=== PATIENT | male | born 1945 | race Caucasian/White ===

== ENCOUNTER 2018-06-30 06:25 | Day surgery (SDC) | payer MEDICARE, BC ==
[2018-06-30] MEDS ORDERED: MEPERIDINE 25 MG INJ IV (07:00)
[2018-06-30] MEDS ORDERED: OXYCODONE/ACETAMINOPHEN (5/325) TAB PO ×2 (07:00)
[2018-06-30] MEDS ORDERED: DIPHENHYDRAMINE 50 MG INJ IV (07:00)
[2018-06-30] MEDS ORDERED: FENTAnyl 50 MCG/ML VIAL IV ×2 (07:00)
[2018-06-30] MEDS ORDERED: ALBUTEROL 0.083% (NEB) 2.5 MG/3 ML AMP HHN (07:00)
[2018-06-30] MEDS ORDERED: LABETALOL HCL 20MG INJ IV (07:00)
[2018-06-30] MEDS ORDERED: ONDANSETRON 4 MG INJ IV (07:00)
[2018-06-30] MEDS ORDERED: HYDROmorphONE 1 MG/5 ML IV SYRINGE IV ×3 (07:00)
[2018-06-30] MEDS ORDERED: morphine (1 MG/ML) 10ML SYRINGE IV ×2 (07:00)
[2018-06-30] MEDS ORDERED: MIDAZOLAM 1 MG/ML 2 ML INJ (07:31)
[2018-06-30] MEDS ORDERED: CEFAZOLIN 1 GM INJ (07:31)
[2018-06-30] MEDS ORDERED: PROPOFOL 40 ML (07:31)
[2018-06-30] MEDS ORDERED: LIDOCAINE 2% (SDV) 5 ML INJ (07:31)
[2018-06-30] MEDS ORDERED: FENTAnyl 50 MCG/ML VIAL (07:31)
[2018-06-30] MEDS: LIDOCAINE 1% (MDV) 20 ML INJ INJ (07:40)
[2018-06-30] MEDS: BUPIVACAINE 0.5% 30 ML VIAL INJ (07:40)
[2018-06-30] MEDS ORDERED: BUPIVACAINE 0.5% (SDV) 30 ML INJ (07:54)
[2018-06-30] MEDS ORDERED: LIDOCAINE 1% (MDV) 20 ML INJ (07:54)
== END 2018-06-30 10:35 | disposition home or self-care (01) ==
LOC: SDS 06:25
DX: M77.52 Other enthesopathy of left foot and ankle (principal); E11.42 Type 2 diabetes mellitus with diabetic polyneuropathy; M21.962 Unspecified acquired deformity of left lower leg; I10 Essential (primary) hypertension; E78.5 Hyperlipidemia, unspecified
CPT/HCPCS: 28039; 82962; 88307

== ENCOUNTER 2018-07-08 12:38 | Emergency (ER) | payer SELFPAY, BC, MEDICARE | END 2018-07-08 19:06 | disposition left against medical advice (07) | LOC: E/R 12:38 | DX: Z53.21 Procedure and treatment not carried out due to patient leaving prior to being seen by health care provider (principal) ==

== ENCOUNTER 2018-07-09 06:09 | Emergency (ER) | payer MEDICARE, BC ==
[2018-07-09 07:41] LABS: ADD MAN DIFF? NO
[2018-07-09 07:44] LABS: BASOPHIL # 0.1 10^3/ul (0.0-0.1); BASOPHILS % 0.7 % (0.0-2.0); EOSINOPHILS # 0.1 10^3/ul (0.0-0.5); EOSINOPHILS % 1.2 % (0.0-7.0); HEMATOCRIT 40.2 % (42.0-52.0); HEMOGLOBIN 13.2 g/dl (14.0-18.0); MEAN CORPUSCULAR HEMOGLOBIN 29.6 pg (29.0-33.0); MEAN CORPUSCULAR HGB CONC 32.8 g/dl (32.0-37.0); MEAN CORPUSCULAR VOLUME 90.1 fl (82.0-101.0); MEAN PLATELET VOLUME 9.6 fl (7.4-10.4); MONOCYTE # 0.7 10^3/ul (0.3-0.9); MONOCYTES % 8.2 % (0.0-11.0); NEUTROPHIL # 6.5 10^3/ul (1.6-7.5); NEUTROPHILS % 77.7 % (39.0-77.0); PLATELET COUNT 186 10^3/UL (140-415); RED BLOOD COUNT 4.46 10^6/ul (4.70-6.10); RED CELL DISTRIBUTION WIDTH 13.2 % (11.5-14.5)
[2018-07-09 07:44] LABS: WHITE BLOOD COUNT 8.3 10^3/ul (4.8-10.8)
[2018-07-09 08:00] LABS: ALANINE AMINOTRANSFERASE 45 IU/L (13-69); ALBUMIN 4.2 g/dl (3.3-4.9); ALKALINE PHOSPHATASE 76 IU/L (42-121); ANION GAP 12 (5-13); ASPARTATE AMINO TRANSFERASE 36 IU/L (15-46); BILIRUBIN,INDIRECT 0.4 mg/dl (0-1.1); BILIRUBIN,TOTAL 0.4 mg/dl (0.2-1.3); BLOOD UREA NITROGEN 15 mg/dl (7-20); CALCIUM 9.7 mg/dl (8.4-10.2); CARBON DIOXIDE 26 mmol/L (21-31); CHLORIDE 105 mmol/L (97-110); CREATININE 0.63 mg/dl (0.61-1.24); GLUCOSE 171 mg/dl (70-220); LIPASE 30 U/L (23-300); POTASSIUM 4.1 mmol/L (3.5-5.1); SODIUM 143 mmol/L (135-144); TOTAL PROTEIN 7.2 g/dl (6.1-8.1)
[2018-07-09] MEDS ORDERED: ONDANSETRON 4 MG INJ IV (08:00)
[2018-07-09] MEDS ORDERED: ACETAMINOPHEN 325 MG TAB PO (08:00)
[2018-07-09 08:10] LABS: INR 1.02; PROTIME 13.5 Sec (11.9-14.9); PT RATIO 1.1
[2018-07-09 08:11] LABS: PARTIAL THROMBOPLASTIN TIME 30.2 Sec (23.0-35.0)
[2018-07-09 08:13] LABS: TROPONIN-I < 0.012 ng/ml (0.000-0.120)
[2018-07-09 08:25] LABS: ADD UMIC YES; UR ASCORBIC ACID NEGATIVE (NEGATIVE); UR BILIRUBIN (Dip) NEGATIVE (NEGATIVE); UR BLOOD (Dip) 1+ mg/dL (NEGATIVE); UR CLARITY CLEAR (CLEAR); UR COLOR YELLOW (YELLOW); UR GLUCOSE (Dip) NEGATIVE (NEGATIVE); UR KETONES (Dip) NEGATIVE (NEGATIVE); UR LEUKOCYTE ESTERASE (Dip) NEGATIVE Leu/ul (NEGATIVE); UR NITRITE (Dip) NEGATIVE (NEGATIVE); UR RBC 1 /HPF (0-5); UR SPECIFIC GRAVITY (Dip) 1.012 (1.003-1.030); UR TOTAL PROTEIN (Dip) NEGATIVE (NEGATIVE); UR UROBILINOGEN (Dip) 1+ mg/dL (NEGATIVE); UR WBC 1 /HPF (0-5)
[2018-07-09] MEDS: VANCOMYCIN 1 GM (PMX) 250 ML IVPB (11:38)
[2018-07-09] MEDS: PIPER-TAZO 3.375 GM IV (PMX) 100 ML IVPB (14:02)
== END 2018-07-09 14:49 | disposition home or self-care (01) ==
LOC: E/R 06:09
DX: L76.32 Postprocedural hematoma of skin and subcutaneous tissue following other procedure (principal); I10 Essential (primary) hypertension; E11.9 Type 2 diabetes mellitus without complications
CPT/HCPCS: 36415; 71045; 73630-LT; 80053; 81001; 83690; 84484; 85025; 85610; 85730; 93005; 96365; 96366; 96367; 96375; 99285-25

== ENCOUNTER 2018-07-10 07:27 | Observation (INO) | payer MEDICARE, BC ==
[2018-07-10] MEDS ORDERED: FENTAnyl 50 MCG/ML VIAL (08:24)
[2018-07-10] MEDS ORDERED: CEFAZOLIN 1 GM INJ (08:24)
[2018-07-10] MEDS ORDERED: PROPOFOL 20 ML (08:24)
[2018-07-10] MEDS ORDERED: MIDAZOLAM 1 MG/ML 2 ML INJ (08:24)
[2018-07-10] MEDS ORDERED: ROPIVACAINE 0.2% 20 ML VIAL (08:25)
[2018-07-10] MEDS ORDERED: ROPIVACAINE 0.5 % 30 ML VIAL (08:25)
[2018-07-10] MEDS ORDERED: METOCLOPRAMIDE 10 MG INJ IV (08:30)
[2018-07-10] MEDS ORDERED: EPHEDrine SULFATE 50 MG/5 ML SYG IV (08:30)
[2018-07-10] MEDS ORDERED: FENTAnyl 50 MCG/ML VIAL IV ×2 (08:30)
[2018-07-10] MEDS ORDERED: ONDANSETRON 4 MG INJ IV ×2 (08:30→09:30)
[2018-07-10] MEDS ORDERED: MEPERIDINE 25 MG INJ IV (08:30)
[2018-07-10] MEDS ORDERED: OXYCODONE/ACETAMINOPHEN (5/325) TAB PO (08:30)
[2018-07-10] MEDS ORDERED: LABETALOL HCL 20MG INJ IV (08:30)
[2018-07-10] MEDS ORDERED: DIPHENHYDRAMINE 50 MG INJ IV ×2 (08:30→09:30)
[2018-07-10] MEDS ORDERED: HYDROmorphONE 1 MG/5 ML IV SYRINGE IV ×2 (08:30)
[2018-07-10] MEDS ORDERED: hydrALAzine 20 MG INJ IV (08:30)
[2018-07-10] MEDS ORDERED: DEXAMETHASONE 4 MG/ML 5 ML INJ (09:04)
[2018-07-10] MEDS ORDERED: ONDANSETRON 4 MG INJ (09:04)
[2018-07-10] MEDS ORDERED: METOCLOPRAMIDE 10 MG INJ (09:04)
[2018-07-10] MEDS: POLYMYXIN/BACITRACIN 1L IRRIG IRR (09:19)
[2018-07-10] MEDS ORDERED: KETOROLAC 15 MG INJ IV (09:30)
[2018-07-10] MEDS: CEFAZOLIN 1 GM/50 ML (PMX) 50 ML IVPB ×2 (13:27→21:31)
[2018-07-10] MEDS ORDERED: DEXTROSE 50% 50 ML SYRINGE IV ×2 (16:00)
[2018-07-10] MEDS ORDERED: GLUCOSE GEL 15 GRAM TUBE PO ×2 (16:00)
[2018-07-10] MEDS ORDERED: GLUCOSE GEL 15 GRAM TUBE BUCCAL (16:00)
[2018-07-10] MEDS ORDERED: GLUCAGON 1 MG INJ IM (16:00)
[2018-07-10] MEDS: ACCU-CHEK XX ×2 (17:35→21:31)
[2018-07-10] MEDS: metFORMIN 500 MG TAB PO (18:05)
[2018-07-11] MEDS: ACCU-CHEK XX ×3 (01:31→11:30)
[2018-07-11] MEDS: CEFAZOLIN 1 GM/50 ML (PMX) 50 ML IVPB (06:04)
[2018-07-11] MEDS: HYDROCODONE/APAP (10/325) TAB PO ×2 (06:55→13:46)
[2018-07-11] MEDS: metFORMIN 500 MG TAB PO (08:13)
[2018-07-11] MEDS: INSULIN ASPART [NOVOLOG] 3 ML PEN SC ×2 (08:13→12:00)
[2018-07-11] MEDS: LISINOPRIL 20 MG TAB PO (09:13)
[2018-07-11] MEDS: AMLODIPINE 5 MG TAB PO (09:14)
== END 2018-07-11 14:00 | disposition home or self-care (01) ==
LOC: SDS 07:27 → REC 10:36 → PP2 11:15
PROVIDERS: Podiatrist Foot & Ankle Surgery
DX: L76.32 Postprocedural hematoma of skin and subcutaneous tissue following other procedure (principal); I10 Essential (primary) hypertension; E11.9 Type 2 diabetes mellitus without complications; Y83.8 Other surgical procedures as the cause of abnormal reaction of the patient, or of later complication, without mention of misadventure at the time of the procedure
CPT/HCPCS: 10140; 82962; 87070; 87075; 87102; 97162